=== PATIENT | female | born 1980 | race Caucasian/White ===

== ENCOUNTER 2018-06-29 21:13 | Inpatient (IN) | payer OTHER ==
[2018-06-29] MEDS: HYDROmorphONE 1 MG/ML SYG IV (22:06)
[2018-06-29] MEDS: ONDANSETRON 4 MG INJ IV (22:06)
[2018-06-29] MEDS: SOD CHLORIDE 0.9% 1,000 ML IV (22:07)
[2018-06-29 22:11] LABS: ADD MAN DIFF? NO
[2018-06-29 22:15] LABS: BASOPHIL # 0.1 10^3/ul (0.0-0.1); BASOPHILS % 0.4 % (0.0-2.0); EOSINOPHILS # 0.4 10^3/ul (0.0-0.5); EOSINOPHILS % 2.4 % (0.0-7.0); HEMATOCRIT 40.9 % (37.0-47.0); HEMOGLOBIN 13.8 g/dl (12.0-16.0); LYMPHOCYTES # 3.4 10^3/ul (0.8-2.9); LYMPHOCYTES % 19.2 % (15.0-51.0); MEAN CORPUSCULAR HEMOGLOBIN 30.9 pg (29.0-33.0); MEAN CORPUSCULAR HGB CONC 33.7 g/dl (32.0-37.0); MEAN CORPUSCULAR VOLUME 91.5 fl (82.0-101.0); MONOCYTE # 0.8 10^3/ul (0.3-0.9); MONOCYTES % 4.3 % (0.0-11.0); NEUTROPHIL # 13.1 10^3/ul (1.6-7.5); NEUTROPHILS % 73.1 % (39.0-77.0); PLATELET COUNT 250 10^3/UL (140-415); RED BLOOD COUNT 4.47 10^6/ul (4.20-5.40); RED CELL DISTRIBUTION WIDTH 12.8 % (11.5-14.5)
[2018-06-29 22:15] LABS: WHITE BLOOD COUNT 17.8 10^3/ul (4.8-10.8)
[2018-06-29 23:06] LABS: ALANINE AMINOTRANSFERASE 28 IU/L (13-69); ALBUMIN 3.1 g/dl (3.3-4.9); ALKALINE PHOSPHATASE 65 IU/L (42-121); ANION GAP 11 (5-13); ASPARTATE AMINO TRANSFERASE 19 IU/L (15-46); BILIRUBIN,INDIRECT 0.2 mg/dl (0-1.1); BILIRUBIN,TOTAL 0.2 mg/dl (0.2-1.3); BLOOD UREA NITROGEN 14 mg/dl (7-20); CALCIUM 8.1 mg/dl (8.4-10.2); CARBON DIOXIDE 23 mmol/L (21-31); CHLORIDE 108 mmol/L (97-110); CREATININE 0.77 mg/dl (0.44-1.00); Estimated GFR > 60 mL/min (>60); GLUCOSE 81 mg/dl (70-220); LIPASE 245 U/L (23-300); POTASSIUM 3.3 mmol/L (3.5-5.1); SODIUM 142 mmol/L (135-144); TOTAL PROTEIN 5.9 g/dl (6.1-8.1)
[2018-06-29] MEDS: IOHEXOL 300MG/ML 150 ML BTL (23:14)
[2018-06-29] MEDS: SOD CHLORIDE 0.9% 100 ML (23:14)
[2018-06-29 23:19] LABS: ADD UMIC YES; UR ASCORBIC ACID NEGATIVE (NEGATIVE); UR BILIRUBIN (Dip) NEGATIVE (NEGATIVE); UR BLOOD (Dip) NEGATIVE (NEGATIVE); UR CLARITY SLIGHTLY CLOUDY (CLEAR); UR COLOR YELLOW (YELLOW); UR GLUCOSE (Dip) NEGATIVE (NEGATIVE); UR KETONES (Dip) TRACE mg/dL (NEGATIVE); UR LEUKOCYTE ESTERASE (Dip) 2+ Leu/ul (NEGATIVE); UR MUCUS MODERATE /HPF (NONE SEEN); UR NITRITE (Dip) NEGATIVE (NEGATIVE); UR RBC 8 /HPF (0-5); UR SQUAMOUS EPITHELIAL CELL FEW /HPF (FEW); UR TOTAL PROTEIN (Dip) NEGATIVE (NEGATIVE); UR UROBILINOGEN (Dip) NEGATIVE (NEGATIVE); UR WBC 19 /HPF (0-5)
[2018-06-29] MEDS: KETOROLAC 30 MG INJ IV (23:22)
[2018-06-29] MEDS: morphine 4 MG/ML VIAL IV (23:25)
[2018-06-30] MEDS ORDERED: ACETAMINOPHEN 325 MG TAB PO (01:00)
[2018-06-30] MEDS ORDERED: ONDANSETRON 4 MG INJ IV ×2 (01:00→02:30)
[2018-06-30] MEDS: SODIUM CHLORIDE 0.9% 1L BAG IV* (01:46)
[2018-06-30] MEDS: metroNIDAZOLE 500 MG/NS (PMX) 100 ML IVPB (01:53)
[2018-06-30] MEDS: LEVOFLOXACIN 500MG/D5W (PMX) 100 ML IVPB (01:53)
[2018-06-30] MEDS: morphine 4 MG/ML VIAL IV (01:54)
[2018-06-30] MEDS ORDERED: ALBUTEROL HFA 8 GM INHALER INH (02:30)
[2018-06-30] MEDS ORDERED: morphine 2 MG INJ IV (02:30)
[2018-06-30] MEDS ORDERED: PROVENTIL HFA 6.7GM INHALER INH (02:30)
[2018-06-30] MEDS ORDERED: NACL 0.9% 3 ML SYG IV (02:30)
[2018-06-30] MEDS: OXCARBAZEPINE 300 MG TAB PO ×3 (03:24→20:16)
[2018-06-30] MEDS: DEXTROSE 5%-0.45% NACL 1,000 ML IV ×4 (03:24→22:00)
[2018-06-30] MEDS: LORAZEPAM 2 MG INJ IV ×2 (03:45)
[2018-06-30 07:42] LABS: ADD MAN DIFF? NO
[2018-06-30 07:46] LABS: WHITE BLOOD COUNT 11.4 10^3/ul (4.8-10.8)
[2018-06-30 07:46] LABS: BASOPHILS % 0.3 % (0.0-2.0); EOSINOPHILS # 0.2 10^3/ul (0.0-0.5); EOSINOPHILS % 1.8 % (0.0-7.0); HEMATOCRIT 37.4 % (37.0-47.0); HEMOGLOBIN 12.1 g/dl (12.0-16.0); LYMPHOCYTES # 1.4 10^3/ul (0.8-2.9); LYMPHOCYTES % 12.3 % (15.0-51.0); MEAN CORPUSCULAR HEMOGLOBIN 30.5 pg (29.0-33.0); MEAN CORPUSCULAR HGB CONC 32.4 g/dl (32.0-37.0); MEAN CORPUSCULAR VOLUME 94.2 fl (82.0-101.0); MEAN PLATELET VOLUME 10.6 fl (7.4-10.4); MONOCYTE # 0.6 10^3/ul (0.3-0.9); MONOCYTES % 4.8 % (0.0-11.0); NEUTROPHIL # 9.2 10^3/ul (1.6-7.5); NEUTROPHILS % 80.3 % (39.0-77.0); PLATELET COUNT 186 10^3/UL (140-415); RED BLOOD COUNT 3.97 10^6/ul (4.20-5.40); RED CELL DISTRIBUTION WIDTH 12.4 % (11.5-14.5)
[2018-06-30 08:05] LABS: LACTIC ACID 0.7 mmol/L (0.5-2.0)
[2018-06-30 08:12] LABS: ALANINE AMINOTRANSFERASE 24 IU/L (13-69); ALKALINE PHOSPHATASE 59 IU/L (42-121); ANION GAP 9 (5-13); ASPARTATE AMINO TRANSFERASE 18 IU/L (15-46); BILIRUBIN,INDIRECT 0.3 mg/dl (0-1.1); BILIRUBIN,TOTAL 0.3 mg/dl (0.2-1.3); BLOOD UREA NITROGEN 13 mg/dl (7-20); CALCIUM 7.9 mg/dl (8.4-10.2); CARBON DIOXIDE 23 mmol/L (21-31); CHLORIDE 106 mmol/L (97-110); CREATININE 0.69 mg/dl (0.44-1.00); Estimated GFR > 60 mL/min (>60); GLUCOSE 107 mg/dl (70-220); LIPASE 299 U/L (23-300); MAGNESIUM 1.7 mg/dl (1.7-2.5); PHOSPHORUS 3.1 mg/dl (2.5-4.9); POTASSIUM 3.7 mmol/L (3.5-5.1); SODIUM 138 mmol/L (135-144); TOTAL PROTEIN 5.3 g/dl (6.1-8.1)
[2018-06-30] MEDS: FAMOTIDINE 20 MG INJ IV ×2 (10:14→20:15)
[2018-06-30] MEDS: KETOROLAC 15 MG INJ IV (10:21)
[2018-06-30] MEDS ORDERED: hydrOXYzine HCL 25 MG TAB PO (11:00)
[2018-06-30] MEDS ORDERED: hydrOXYzine PAMOATE 25 MG CAP PO (12:00)
[2018-06-30] MEDS: ARIPIPRAZOLE 5 MG TAB PO (12:24)
[2018-06-30] MEDS: FLUTICASONE 0.05% 16 GM NAS SPRAY NASAL ×2 (12:25→20:16)
[2018-06-30] MEDS: NICOTINE (21 MG/24 HR) PATCH TRANSDERM (12:25)
[2018-06-30] MEDS: morphine 2 MG INJ IV ×2 (14:09→22:04)
[2018-06-30] MEDS: hydrOXYzine PAMOATE 25 MG CAP PO (20:15)
[2018-06-30] MEDS: RANITIDINE 150 MG TAB PO (20:15)
[2018-06-30] MEDS: MIRTAZAPINE 15 MG TAB PO (20:15)
[2018-07-01 06:19] LABS: ADD MAN DIFF? NO
[2018-07-01] MEDS: DEXTROSE 5%-0.45% NACL 1,000 ML IV ×2 (06:19→14:46)
[2018-07-01 06:38] LABS: WHITE BLOOD COUNT 13.7 10^3/ul (4.8-10.8)
[2018-07-01 06:38] LABS: BASOPHIL # 0.1 10^3/ul (0.0-0.1); BASOPHILS % 0.4 % (0.0-2.0); EOSINOPHILS # 0.2 10^3/ul (0.0-0.5); EOSINOPHILS % 1.4 % (0.0-7.0); HEMATOCRIT 35.3 % (37.0-47.0); HEMOGLOBIN 11.9 g/dl (12.0-16.0); LYMPHOCYTES # 1.8 10^3/ul (0.8-2.9); LYMPHOCYTES % 13.5 % (15.0-51.0); MEAN CORPUSCULAR HEMOGLOBIN 31.3 pg (29.0-33.0); MEAN CORPUSCULAR HGB CONC 33.7 g/dl (32.0-37.0); MEAN CORPUSCULAR VOLUME 92.9 fl (82.0-101.0); MEAN PLATELET VOLUME 10.7 fl (7.4-10.4); MONOCYTE # 0.7 10^3/ul (0.3-0.9); MONOCYTES % 4.8 % (0.0-11.0); NEUTROPHIL # 10.9 10^3/ul (1.6-7.5); NEUTROPHILS % 79.5 % (39.0-77.0); PLATELET COUNT 200 10^3/UL (140-415); RED CELL DISTRIBUTION WIDTH 12.5 % (11.5-14.5)
[2018-07-01 07:06] LABS: ANION GAP 7 (5-13); BLOOD UREA NITROGEN 7 mg/dl (7-20); CALCIUM 7.5 mg/dl (8.4-10.2); CARBON DIOXIDE 22 mmol/L (21-31); CHLORIDE 103 mmol/L (97-110); CREATININE 0.62 mg/dl (0.44-1.00); Estimated GFR > 60 mL/min (>60); GLUCOSE 104 mg/dl (70-220); MAGNESIUM 1.7 mg/dl (1.7-2.5); PHOSPHORUS 2.5 mg/dl (2.5-4.9); POTASSIUM 3.1 mmol/L (3.5-5.1); SODIUM 132 mmol/L (135-144)
[2018-07-01 07:15] LABS: LIPASE 90 U/L (23-300)
[2018-07-01] MEDS: RANITIDINE 150 MG TAB PO ×2 (08:46→20:58)
[2018-07-01] MEDS: NICOTINE (21 MG/24 HR) PATCH TRANSDERM (08:46)
[2018-07-01] MEDS: FLUTICASONE 0.05% 16 GM NAS SPRAY NASAL ×2 (08:46→20:58)
[2018-07-01] MEDS: FAMOTIDINE 20 MG INJ IV ×2 (08:46→20:58)
[2018-07-01] MEDS: OXCARBAZEPINE 300 MG TAB PO ×2 (08:46→22:18)
[2018-07-01] MEDS: ARIPIPRAZOLE 5 MG TAB PO (08:47)
[2018-07-01] MEDS: morphine 2 MG INJ IV ×2 (12:31→18:27)
[2018-07-01] MEDS: POTASSIUM CHLORIDE 100 ML IVPB ×2 (12:45→14:36)
[2018-07-01] MEDS: CEFTRIAXONE 1 GM/50 ML (PMX) 50 ML IVPB (16:46)
[2018-07-01] MEDS: MIRTAZAPINE 15 MG TAB PO (20:58)
[2018-07-01] MEDS: hydrOXYzine PAMOATE 25 MG CAP PO (22:18)
[2018-07-02] MEDS: DEXTROSE 5%-0.45% NACL 1,000 ML IV ×2 (03:45→12:34)
[2018-07-02 05:08] LABS: ADD MAN DIFF? NO
[2018-07-02 05:24] LABS: BASOPHILS % 0.2 % (0.0-2.0); EOSINOPHILS # 0.2 10^3/ul (0.0-0.5); EOSINOPHILS % 1.8 % (0.0-7.0); HEMOGLOBIN 11.1 g/dl (12.0-16.0); LYMPHOCYTES # 1.7 10^3/ul (0.8-2.9); LYMPHOCYTES % 14.1 % (15.0-51.0); MEAN CORPUSCULAR HGB CONC 33.6 g/dl (32.0-37.0); MEAN CORPUSCULAR VOLUME 92.2 fl (82.0-101.0); MEAN PLATELET VOLUME 10.6 fl (7.4-10.4); MONOCYTE # 0.8 10^3/ul (0.3-0.9); MONOCYTES % 6.7 % (0.0-11.0); NEUTROPHIL # 9.4 10^3/ul (1.6-7.5); NEUTROPHILS % 76.7 % (39.0-77.0); PLATELET COUNT 191 10^3/UL (140-415); RED BLOOD COUNT 3.58 10^6/ul (4.20-5.40); RED CELL DISTRIBUTION WIDTH 12.6 % (11.5-14.5)
[2018-07-02 05:24] LABS: WHITE BLOOD COUNT 12.3 10^3/ul (4.8-10.8)
[2018-07-02 06:33] LABS: ANION GAP 10 (5-13); BLOOD UREA NITROGEN 4 mg/dl (7-20); CALCIUM 7.9 mg/dl (8.4-10.2); CARBON DIOXIDE 21 mmol/L (21-31); CHLORIDE 108 mmol/L (97-110); CREATININE 0.71 mg/dl (0.44-1.00); Estimated GFR > 60 mL/min (>60); GLUCOSE 90 mg/dl (70-220); LIPASE 25 U/L (23-300); POTASSIUM 3.2 mmol/L (3.5-5.1); SODIUM 139 mmol/L (135-144)
[2018-07-02 06:39] LABS: MAGNESIUM 1.8 mg/dl (1.7-2.5)
[2018-07-02 06:39] LABS: PHOSPHORUS 2.9 mg/dl (2.5-4.9)
[2018-07-02] MEDS: FLUTICASONE 0.05% 16 GM NAS SPRAY NASAL (08:34)
[2018-07-02] MEDS: NICOTINE (21 MG/24 HR) PATCH TRANSDERM (08:35)
[2018-07-02] MEDS: OXCARBAZEPINE 300 MG TAB PO (08:35)
[2018-07-02] MEDS: RANITIDINE 150 MG TAB PO (08:35)
[2018-07-02] MEDS: ARIPIPRAZOLE 5 MG TAB PO (08:35)
[2018-07-02] MEDS: FAMOTIDINE 20 MG INJ IV (08:35)
[2018-07-02] MEDS: CEFTRIAXONE 1 GM/50 ML (PMX) 50 ML IVPB (12:34)
[2018-07-02] MEDS: POTASSIUM CHLORIDE (SR) 20 MEQ TAB PO (14:04)
[2018-07-02] MEDS ORDERED: hydrOXYzine PAMOATE 25 MG CAP PO (21:00)
== END 2018-07-02 14:33 | disposition home or self-care (01) | DRG 440 ==
LOC: FTE 21:13 → PP2 06-30 00:34
PROVIDERS: Internal Medicine
DX: K85.90 Acute pancreatitis without necrosis or infection, unspecified (principal); E88.09 Other disorders of plasma-protein metabolism, not elsewhere classified; E87.6 Hypokalemia; J45.909 Unspecified asthma, uncomplicated; F43.10 Post-traumatic stress disorder, unspecified; F31.9 Bipolar disorder, unspecified; F17.210 Nicotine dependence, cigarettes, uncomplicated
CPT/HCPCS: 36415; 74177; 76830; 76856; 80048; 80053; 81001; 81025; 83605; 83690; 83735; 84100; 84703; 85025; 87040; 90686; 96361; 96374; 96375; 99291-25